=== PATIENT | female | born 1980 | race Hispanic/Latino ===

== ENCOUNTER 2017-08-13 23:38 | Emergency (ER) | payer SELFPAY ==
[2017-08-13 23:58] VITALS: RESP 16; TEMP 98; O2SAT 100
--- NOTE | 2017-08-14 01:23 | ED PDOC ---
HPI: General Adult Time Seen by Provider: 08/14/17 01:00 Chief Complaint (Nursing): GI Problem Chief Complaint (Provider): possible medication reaction History Per: Patient History/Exam Limitations: no limitations Onset/Duration Of Symptoms: Hrs Current Symptoms Are (Timing): Better Additional Complaint(s): 37 y/o female history of hypothyroid presents for evaluation of possible reaction to medication x 4 hours. Patient states since Thursday she has been taking one sudafed tablet daily for seasonal allergy symptoms; states tonight after taking one dose at 21:00 she became to feel headache, tremors, experience palpitations, noted her pupils to be dilated, and felt nauseous. Patient states she went to the pharmacy and checked her blood pressure and it was in the 120's/80's which she states is "high" for her. Denies extremity numbness/ weakness, vision change, chest pain, shortness of breath, abdominal pain, leg pain/swelling. Past Medical History Reviewed: Historical Data, Nursing Documentation, Vital Signs Vital Signs: Last Vital Signs Temp 98.0 F 08/13/17 23:53 Pulse 79 08/13/17 23:53 Resp 16 08/13/17 23:53 BP 111/74 08/13/17 23:53 Pulse Ox 100 08/14/17 03:10 - Medical History PMH: Hypothyroidism - Surgical History Surgical History: No Surg Hx - Family History Family History: States: No Known Family Hx - Allergies Allergies/Adverse Reactions: Allergies Allergy/AdvReac Type Severity Reaction Status Date / Time No Known Allergies Allergy Verified 08/13/17 23:53 Review of Systems ROS Statement: Except As Marked, All Systems Reviewed And Found Negative Cardiovascular: Positive for: Palpitations Gastrointestinal: Positive for: Nausea Physical Exam - Reviewed Nursing Documentation Reviewed: Yes Vital Signs Reviewed: Yes - Physical Exam Appears: Positive for: Well, Non-toxic, No Acute Distress Head Exam: Positive for: ATRAUMATIC, NORMAL INSPECTION, NORMOCEPHALIC Skin: Positive for: Normal Color Eye Exam: Positive for: Normal appearance ENT: Positive for: Normal ENT Inspection Cardiovascular/Chest: Positive for: Regular Rate, Rhythm Respiratory: Positive for: Normal Breath Sounds Gastrointestinal/Abdominal: Positive for: Normal Exam Back: Positive for: Normal Inspection Extremity: Positive for: Normal ROM Neurologic/Psych: Positive for: Alert, Oriented. Negative for: Motor/Sensory Deficits - Laboratory Results Result Diagrams: 08/14/17 02:29 08/14/17 02:29 - ECG ECG: Positive for: Viewed By Me (reviewed by ED attending) ECG Rhythm: Positive for: Sinus Rhythm O2 Sat by Pulse Oximetry: 100 - Progress ED Course And Treament: labs, ekg On re-eval, patient states she is feeling better. Patient educated on findings, advised to discontinue Sudafed. Advised OTC anti-histamines, nasal sprays for seasonal allergy symptoms. Follow up PMD 2-3 days. Return precautions given Disposition - Clinical Impression Clinical Impression: Palpitations, Nausea, Adverse drug experience - Patient ED Disposition Is Patient to be Admitted: No Counseled Patient/Family Regarding: Studies Performed, Diagnosis, Need For Followup - Disposition Referrals: [facility] [Outside] Disposition: Routine/Home Disposition Time: 04:30 Condition: IMPROVED Instructions: Side Effects From Medicines, Palpitations, Nausea and Vomiting, Adult Forms: [facility] (Sudanese)
[2017-08-14 02:32] LABS: BASO # 0.1 K/uL (0.0-0.2); BASO % 1.2 % (0.0-2.0); EOS # 0.1 K/uL (0.0-0.7); EOS % 1.7 % (0.0-4.0); HEMOGLOBIN 13.8 g/dL (12.0-16.0); LYMPH # 2.3 K/uL (1.0-4.3); LYMPH % 28.8 % (20.0-40.0); MEAN CELL VOLUME 90.7 fl (81.0-99.0); MEAN CORPUSCULAR HEMOGLOBIN 30.3 pg (27.0-31.0); MEAN CORPUSCULAR HGB CONC 33.4 g/dL (33.0-37.0); MEAN PLATELET VOLUME 6.9 fl (7.2-11.7); MONO # 0.9 K/uL (0.0-0.8); NEUT # 4.6 K/uL (1.8-7.0); NEUT % 57.3 % (50.0-75.0); RBC 4.55 Mil/uL (3.80-5.20); RED CELL DISTRIBUTION WIDTH 12.7 % (11.5-14.5)
[2017-08-14 02:41] LABS: ALB/GLOB RATIO 1.4 (1.0-2.1); ALBUMIN 4.1 g/dL (3.5-5.0); ALT/SGPT 26 U/L (9-52); AST/SGOT 26 U/L (14-36); BLOOD UREA NITROGEN 15 mg/dl (7-17); CALCIUM 9.1 mg/dL (8.4-10.2); GFR AFRICAN-AMERICAN > 60; GFR NON-AFRICAN AMERICAN > 60
[2017-08-14 04:48] VITALS: BP 92/64; PULSE 66
--- NOTE | 2017-08-14 10:22 | CARD ---
APPROVED REPORT EKG Measurement Heart [id number] <Conclusion> Normal sinus rhythm Normal ECG
== END 2017-08-14 04:45 | disposition home or self-care (01) ==
LOC: H.ER 23:38
DX: T50.905A Adverse effect of unspecified drugs, medicaments and biological substances, initial encounter (principal); E03.9 Hypothyroidism, unspecified